=== PATIENT | male | born 1990 | race Caucasian/White ===

== ENCOUNTER 2018-08-26 20:10 | Emergency (ER) | payer SELFPAY ==
--- NOTE | 2018-08-26 20:21 | ER Report ---
History and Physical Time Seen By MD: 20:21 HPI/ROS CHIEF COMPLAINT: Right ankle pain HISTORY OF PRESENT ILLNESS: Patient is a 28-year-old male here with complaints of right ankle pain. Patient reportedly was playing basketball, pivoted and plantar flexed his right ankle when he heard a popping sensation in the posterior ankle in the area of the Achilles tendon. Patient is neurovascularly intact at time of evaluation with an obvious divot present with no flexion with squeezing of the calf. Patient denies further injury at this time. REVIEW OF SYSTEMS: Constitutional: No fever, no chills. Musculoskeletal: Right posterior ankle pain tender on palpation, tenderness on palpation of the distal calf and gastrocnemius Skin: No rashes. Neurological: Neurovascular exam intact distal to the injury site Allergies: Coded Allergies: No Known Drug Allergies (Unverified , 08/26/18) Home Meds Active Scripts Oxycodone Hcl (OXYCODONE HCL) 5 Mg Tablet, 5 MG PO Q4-6H PRN for PAIN, #10 TAB Prov:JOSE M LOCK DO 08/26/18 Constitutional Vital Sign - Last 24 Hours 08/26/18 08/26/18 08/26/18 08/26/18 20:20 20:25 20:30 20:55 Temp 97.8 Pulse 87 90 81 Resp 20 B/P (MAP) 133/81 128/60 (82) Pulse Ox 90 90 94 O2 Delivery Room Air 08/26/18 08/26/18 08/26/18 21:10 21:25 21:40 Pulse 83 85 85 Pulse Ox 94 94 96 Physical Exam General Appearance: The patient is alert, has no immediate need for airway protection and no signs of toxicity. Uncomfortable. Neurological: Neurovascularly intact distal to the injury site Skin: Warm and dry, no rashes. Musculoskeletal: Tenderness on palpation of the right posterior ankle, obvious deformity of the Achilles tendon with no foot movement on calf squeezing. DIFFERENTIAL DIAGNOSIS: After history and physical exam differential diagnosis was considered for fracture, dislocation, Achilles tendon rupture, Achilles tendon tear Medical Decision Making EKG/Imaging Imaging Please see radiology report, no acute fracture or dislocation identified ED Course/Re-evaluation ED Course Patient is a 28-year-old male here with complaints of right posterior ankle pain with deformity present where the Achilles tendon is located. X-ray imaging showed no signs of fracture, there is obvious deformity of the Achilles tendon likely total rupture. I discussed the patient with Dr. White who is the orthopedic doctor scrap preparation supervisor who recommended next day follow-up with [facility] for rehabilitation bone and joint. Patient was placed in a boot, made nonweightbearing, given crutches for stabilization. Prescription for Percocet provided. Return precautions provided. No acute fractures were identified Decision to Disposition Date: Aug 26, 2018 Decision to Disposition Time: 22:22 Depart Departure Latest Vital Signs Vital Signs Date Time Temp Pulse Resp B/P (MAP) Pulse Ox O2 Delivery O2 Flow Rate FiO2 08/26/18 21:40 85 96 08/26/18 20:30 128/60 (82) 08/26/18 20:20 97.8 20 Room Air Impression: Primary Impression: Achilles rupture, right Condition: Improved Disposition: HOME OR SELF-CARE New Scripts Oxycodone Hcl (OXYCODONE HCL) 5 Mg Tablet 5 MG PO Q4-6H PRN for PAIN, #10 TAB Prov: JOSE M LOCK DO 08/26/18 Patient Instructions: Achilles Tendon Rupture (ED) Additional Instructions: I discussed her case with Dr. White with orthopedics. It appears that you have an injury to your right Achilles tendon. Please keep the walking boot in place, please remain nonweightbearing as much as possible, use crutches as needed for support. Please take Tylenol or ibuprofen as needed for primary pain control, you may take 1 oxycodone every 4-6 hours as needed for breakthrough pain control. Please return promptly if you develop numbness, worsening pain, rash. Please follow-up with orthopedics tomorrow for further evaluation and care. JOSE M LOCK DO Aug 26, 2018 20:21
[2018-08-26 20:30] VITALS: BP 128/60
[2018-08-26] MEDS ORDERED: MORPHINE 10 MG/ML SYR IM ONE (20:35)
[2018-08-26] MEDS ORDERED: MORPHINE 4 MG/ML SDV IM ONE (20:40)
[2018-08-26] MEDS ORDERED: OXYC5TAB38 PO (21:43)
[2018-08-26] MEDS ORDERED: oxyCODONE HCL 5 MG CAP PO ONE (21:45)
--- NOTE | 2018-08-26 22:20 | RADIOLOGY IMAGING REPORT ---
FACILITY: [facility] PATIENT NAME: August Piña : 1990 MR: [id number] V: [id number] EXAM DATE: ORDERING PHYSICIAN: JOSE M LOCK TECHNOLOGIST: [place] [facility] [place] August Piña : 1990 Visit/Account:[id number] Date of Sevice: 08/26/2018 ANKLE 3 VIEW MIN RIGHT HISTORY: ankle popped COMPARISON: None FINDINGS: No evidence of acute fracture or dislocation. Talar dome is smooth in contour. Bohler angle is well maintained. Base of the 5th metatarsal is intact. IMPRESSION: 1. No acute osseous abnormality. Report Dictated By: Ric Hodge MD at 08/26/2018 10:15 PM Report E-Signed By: Ric Hodge MD at 08/26/2018 10:16 PM WSN:[id number]
--- NOTE | 2018-08-26 22:21 | RADIOLOGY IMAGING REPORT ---
FACILITY: [facility] PATIENT NAME: August Piña : 1990 MR: [id number] V: [id number] EXAM DATE: ORDERING PHYSICIAN: JOSE M LOCK TECHNOLOGIST: Location: [facility] Patient: August Piña : 1990 Visit/Account:[id number] Date of Sevice: 08/26/2018 TIBIA FIBULA RIGHT HISTORY: ankle popped COMPARISON: None FINDINGS: No tibial or fibular shaft fracture. There is no persistent radiopaque foreign body. IMPRESSION: 1. Negative Report Dictated By: Ric Hodge MD at 08/26/2018 10:16 PM Report E-Signed By: Ric Hodge MD at 08/26/2018 10:16 PM WSN:[id number]
== END 2018-08-26 22:30 | disposition home or self-care (01) ==
LOC: ER 21:15
DX: S86.011A Strain of right Achilles tendon, initial encounter (principal); Y93.67 Activity, basketball
CPT/HCPCS: 73590; 73610; 96372; 99284; J2270